=== PATIENT | male | born 1940 | race Caucasian/White ===

== ENCOUNTER 2017-11-03 00:07 | Emergency (ER) | payer MEDICARE, MEDICAID ==
[~2017-11-03] VITALS: Ht 167.6 cm; Wt 72.0 kg
[2017-11-03 00:09] VITALS: BP 163/118
[2017-11-03] MEDS ORDERED: albuterol 2.5 MG/3 ML nebule NEB ONE (01:15)
[2017-11-03] MEDS ORDERED: methylPREDNISolone sod succ 125mg/2ml vial IV ONE (01:15)
[2017-11-03 02:02] LABS: GLUCOSE 98 MG/DL (70-104); SODIUM 143 MMOL/L (135-145)
[2017-11-03 02:03] LABS: ALANINE AMINOTRANSFERASE 16 U/L (12-78); ALBUMIN 3.8 G/DL (3.4-5.0); ALBUMIN/GLOBULIN RATIO 0.9 (1.1-1.5); ALKALINE PHOSPHATASE 104 IU/L (46-116); ANION GAP 7 (8-16); ASPARTATE AMINO TRANSFERASE 15 U/L (10-37); BILIRUBIN,TOTAL 1.2 MG/DL (0.1-1.0); BLOOD UREA NITROGEN 12 MG/DL (7-18); BUN/CREATININE RATIO 10.3 (5.4-32.0); CHLORIDE 106 MMOL/L (99-107); CREATININE 1.17 MG/DL (0.60-1.10); TOTAL CARBON DIOXIDE 29.6 MMOL/L (24-32); eGFR 61 ML/MIN
[2017-11-03 02:08] LABS: BASOPHILS % (AUTO) 0.2 % (0-1); EOSINOPHILS # (AUTO) 0.3 X10'3 (0-0.9); EOSINOPHILS % (AUTO) 3.9 % (0-6); HEMATOCRIT 55.5 % (42.0-52.0); LYMPHOCYTES # (AUTO) 1.3 X10'3 (1.1-4.8); LYMPHOCYTES % (AUTO) 17.5 % (21-51); MEAN CORPUSCULAR HEMOGLOBIN 30.1 PG (27.0-31.0); MEAN CORPUSCULAR HGB CONC 32.5 % (33.0-36.5); MEAN CORPUSCULAR VOLUME 92.6 FL (78-98); MEAN PLATELET VOLUME 8.1 FL (7.4-10.4); MONOCYTES # (AUTO) 0.8 X10'3 (0-0.9); MONOCYTES % (AUTO) 10.8 % (2-12); NEUTROPHILS % (AUTO) 67.6 % (42-75); PLATELET COUNT 234 X10'3 (140-440); RED BLOOD COUNT 5.99 X10'6 (4.70-6.10); RED CELL DISTRIBUTION WIDTH 16.3 % (11.5-14.5); WHITE BLOOD COUNT 7.4 X10'3 (4.5-11.0)
[2017-11-03] MEDS ORDERED: ALBU8HFA PO (02:38)
[2017-11-03] MEDS ORDERED: PRED20TA PO (02:38)
== END 2017-11-03 03:58 | disposition home or self-care (01) ==
LOC: ER 00:07
DX: J44.1 Chronic obstructive pulmonary disease with (acute) exacerbation (principal); I11.9 Hypertensive heart disease without heart failure; I25.2 Old myocardial infarction; G89.29 Other chronic pain; E78.00 Pure hypercholesterolemia, unspecified; K21.9 Gastro-esophageal reflux disease without esophagitis; Z95.1 Presence of aortocoronary bypass graft; Z79.899 Other long term (current) drug therapy
CPT/HCPCS: 36415; 71045; 80053; 83880; 84484; 85025; 93005; 94640; 94760; 96374; 99285; J2930

== ENCOUNTER 2018-02-27 22:46 | Inpatient (IN) | payer MEDICARE, MEDICAID ==
[~2018-02-27] VITALS: Ht 167.6 cm; Wt 66.8 kg
[2018-02-28 00:31] LABS: ALANINE AMINOTRANSFERASE 14 U/L (12-78); ALBUMIN 3.3 G/DL (3.4-5.0); ANION GAP 11 (8-16); ASPARTATE AMINO TRANSFERASE 16 U/L (10-37); BILIRUBIN,TOTAL 1.1 MG/DL (0.1-1.0); BLOOD UREA NITROGEN 7 MG/DL (7-18); BUN/CREATININE RATIO 6.5 (5.4-32.0); CALCIUM 8.6 MG/DL (8.5-10.1); CHLORIDE 109 MMOL/L (99-107); CREATININE 1.07 MG/DL (0.60-1.10); GLUCOSE 100 MG/DL (70-104); POTASSIUM 4.1 MMOL/L (3.5-5.1); SODIUM 143 MMOL/L (135-145); TOTAL CARBON DIOXIDE 22.8 MMOL/L (24-32); TOTAL PROTEIN 6.6 G/DL (6.4-8.2); TROPONIN I < 0.04 NG/ML (0.0-0.05); eGFR 67 ML/MIN
[2018-02-28 00:42] LABS: HEMATOCRIT 55.2 % (42.0-52.0); MEAN CORPUSCULAR HEMOGLOBIN 31.7 PG (27.0-31.0); MEAN CORPUSCULAR HGB CONC 33.1 % (33.0-36.5); MEAN CORPUSCULAR VOLUME 95.9 FL (78-98); MEAN PLATELET VOLUME 8.1 FL (7.4-10.4); PLATELET COUNT 165 X10'3 (140-440); RED BLOOD COUNT 5.76 X10'6 (4.70-6.10); RED CELL DISTRIBUTION WIDTH 16.5 % (11.5-14.5); WHITE BLOOD COUNT 7.4 X10'3 (4.5-11.0)
[2018-02-28 00:45] LABS: HEMOGLOBIN 18.3 g/dl (14.0-17.9)
[2018-02-28 00:50] LABS: ALKALINE PHOSPHATASE 94 IU/L (46-116)
[2018-02-28 00:52] LABS: INR 1.1 INR; PARTIAL THROMBOPLASTIN TIME 26 SECONDS (22-32); PROTHROMBIN TIME 11.4 SECONDS (9.0-12.0)
[2018-02-28] MEDS ORDERED: furosemide 10 MG/1 ML 10ml inj IV ONE (01:05)
[2018-02-28 01:11] LABS: PLATELET ESTIMATE NORMAL; TOTAL CELLS COUNTED 100
[2018-02-28 01:12] LABS: ANISOCYTOSIS 1+
[2018-02-28] MEDS ORDERED: FUROSEMIDE 20 MG (01:57)
[2018-02-28] MEDS ORDERED: SIMVASTATIN 40 MG (01:57)
[2018-02-28] MEDS ORDERED: OMEPRAZOLE 20 MG (01:57)
[2018-02-28] MEDS ORDERED: HYDROCODONE (01:57)
[2018-02-28] MEDS ORDERED: METOPROLOL SUCCINATE 50 MG (01:57)
[2018-02-28] MEDS ORDERED: APAP (01:57)
[2018-02-28] MEDS ORDERED: ASPIRIN (01:57)
[2018-02-28 02:06] LABS: ABG BASE EXCESS -3.1 mmol/L (-2.0-3.0); ABG HCO3 20.4 mmol/L (22.0-26.0); ABG OXYGEN SATURATION 95.9 % (95-98); ABG PCO2 (T) 32.9 mmHg (35.0-48.0); ABG PH (T) 7.409 (7.350-7.450); ABG PO2 (T) 79.2 mmHg (83-108); ALLEN'S TEST Positive; FCOHb 0.1 % (0.5-1.5); FLOW 5 L/min; FMetHb 0.4 % (0.3-1.12); FO2Hb 95.4 % (94-100); PATIENT TEMPERATURE 36.8; RESPIRATORY RATE (OBSERVED) 18 b/min; TOTAL HEMOGLOBIN 19.2 G/dl (14.0-18.0)
[2018-02-28] MEDS ORDERED: nitroGLYCERIN 0.4mg SUBLingual tab SL PRN (02:45)
[2018-02-28] MEDS ORDERED: morphine 2 MG/ML inj. syringe IV PRN ×2 (02:45)
[2018-02-28] MEDS ORDERED: acetaminophen 325mg tablet PO PRN (02:45)
[2018-02-28] MEDS ORDERED: bisacodyl 10mg suppository rectal RC PRN (02:45)
[2018-02-28] MEDS ORDERED: aspirin 325mg tablet PO ONE (02:45)
[2018-02-28] MEDS ORDERED: metoprolol tartrate 12.5mg (1/2 tablet) PO ONE (03:00)
[2018-02-28] MEDS ORDERED: albuterol 2.5 MG/3 ML nebule NEB PRN (03:25)
[2018-02-28] MEDS: lisinopril 2.5mg tablet PO SCH ×2 (04:02→07:18)
[2018-02-28 04:05] VITALS: BP 175/119
[2018-02-28 07:00] VITALS: BP 149/92
[2018-02-28] MEDS: atorvastatin 20mg tablet PO SCH (07:17)
[2018-02-28] MEDS: docusate sod 100mg capsule PO SCH ×2 (07:17→20:00)
[2018-02-28] MEDS: furosemide 20MG tablet PO SCH (07:17)
[2018-02-28] MEDS: aspirin 325mg tablet PO SCH (07:17)
[2018-02-28] MEDS: azithromycin 250mg tablet PO SCH (07:17)
[2018-02-28] MEDS: metoprolol succinate 25mg (24-HOUR) SR. Tablet PO SCH (07:17)
[2018-02-28] MEDS: pantoprazole 40mg Tablet.DR PO SCH (07:18)
[2018-02-28] MEDS: enoxaparin 40mg/0.4ml syringe SUBCUT SCH (07:19)
[2018-02-28] MEDS: CefTRIAXone/D5W-Rocephin 1gm 50 ML IV SCH (07:19)
[2018-02-28] MEDS: diatr meglu/diatrizoate 30ml oral sol.-(3 dose) bottle PO SCH ×4 (10:22→16:27)
[2018-02-28 11:00] VITALS: BP 108/69
[2018-02-28] MEDS: HYDROcodone/acetaminophen 5mg/325mg tablet PO PRN (14:14)
[2018-02-28 15:00] VITALS: BP 124/86
[2018-02-28] MEDS: ipratropium/albuterol 3ml nebule NEB SCH ×3 (15:00→23:28)
[2018-02-28] MEDS ORDERED: iohexol 300mg/ml 100ml inj. ONE (16:28)
[2018-02-28 18:00] VITALS: BP 92/57
[2018-02-28] MEDS: lactobacillus rhamnosus 10,000 MMU CELLS/CAPSULE PO SCH (20:03)
[2018-02-28] MEDS ORDERED: diatr meglu/diatrizoate 30ml oral sol.-(3 dose) bottle PO SCH (21:00)
[2018-02-28 22:00] VITALS: BP 107/63
[2018-03-01 02:00] VITALS: BP 104/66
[2018-03-01] MEDS: ipratropium/albuterol 3ml nebule NEB SCH ×3 (03:00→11:42)
[2018-03-01 06:00] VITALS: BP 117/65
[2018-03-01] MEDS: HYDROcodone/acetaminophen 5mg/325mg tablet PO PRN (06:16)
[2018-03-01 06:24] LABS: BASOPHILS # (AUTO) 0.1 X10'3 (0-0.2); BASOPHILS % (AUTO) 0.7 % (0-1); EOSINOPHILS # (AUTO) 0.1 X10'3 (0-0.9); EOSINOPHILS % (AUTO) 1.6 % (0-6); HEMATOCRIT 50.9 % (42.0-52.0); HEMOGLOBIN 17.3 g/dl (14.0-17.9); LYMPHOCYTES % (AUTO) 15.1 % (21-51); MEAN CORPUSCULAR HEMOGLOBIN 32.2 PG (27.0-31.0); MEAN CORPUSCULAR HGB CONC 33.9 % (33.0-36.5); MEAN CORPUSCULAR VOLUME 94.9 FL (78-98); MEAN PLATELET VOLUME 8.2 FL (7.4-10.4); MONOCYTES # (AUTO) 0.7 X10'3 (0-0.9); MONOCYTES % (AUTO) 9.8 % (2-12); NEUTROPHILS # (AUTO) 4.9 X10'3 (1.8-7.7); NEUTROPHILS % (AUTO) 72.8 % (42-75); PLATELET COUNT 165 X10'3 (140-440); RED BLOOD COUNT 5.37 X10'6 (4.70-6.10); WHITE BLOOD COUNT 6.7 X10'3 (4.5-11.0)
[2018-03-01 06:46] LABS: ALANINE AMINOTRANSFERASE 8 U/L (12-78); ALBUMIN 2.7 G/DL (3.4-5.0); ALBUMIN/GLOBULIN RATIO 0.8 (1.1-1.5); ALKALINE PHOSPHATASE 80 IU/L (46-116); ANION GAP 11 (8-16); BILIRUBIN,TOTAL 1.2 MG/DL (0.1-1.0); BLOOD UREA NITROGEN 13 MG/DL (7-18); BUN/CREATININE RATIO 10.4 (5.4-32.0); CHLORIDE 108 MMOL/L (99-107); CREATININE 1.25 MG/DL (0.60-1.10); GLUCOSE 107 MG/DL (70-104); SODIUM 142 MMOL/L (135-145); TOTAL CARBON DIOXIDE 23.1 MMOL/L (24-32); TOTAL PROTEIN 5.9 G/DL (6.4-8.2); eGFR 56 ML/MIN
[2018-03-01 06:48] LABS: ASPARTATE AMINO TRANSFERASE 9 U/L (10-37); POTASSIUM 3.9 MMOL/L (3.5-5.1)
[2018-03-01] MEDS: pantoprazole 40mg Tablet.DR PO SCH (07:35)
[2018-03-01] MEDS: lisinopril 2.5mg tablet PO SCH (07:35)
[2018-03-01] MEDS: lactobacillus rhamnosus 10,000 MMU CELLS/CAPSULE PO SCH (07:35)
[2018-03-01] MEDS: aspirin 325mg tablet PO SCH (07:35)
[2018-03-01] MEDS: enoxaparin 40mg/0.4ml syringe SUBCUT SCH (07:35)
[2018-03-01] MEDS: atorvastatin 20mg tablet PO SCH (07:35)
[2018-03-01] MEDS: metoprolol succinate 25mg (24-HOUR) SR. Tablet PO SCH (07:35)
[2018-03-01] MEDS: furosemide 20MG tablet PO SCH (07:35)
[2018-03-01] MEDS: docusate sod 100mg capsule PO SCH (07:37)
[2018-03-01] MEDS: CefTRIAXone/D5W-Rocephin 1gm 50 ML IV SCH (07:42)
[2018-03-01] MEDS: azithromycin 250mg tablet PO SCH (08:00)
[2018-03-01 11:00] VITALS: BP 120/81
[2018-03-01] MEDS ORDERED: AMOX-422 PO (11:28)
== END 2018-03-01 14:40 | disposition home or self-care (01) | DRG 392 ==
LOC: ER 22:46 → ED HOLD 02-28 02:41 → PCU 3S 02-28 04:00
PROVIDERS: ADMIT Emergency Medicine; ATTEND Family Medicine
PROC: BW211ZZ Computerized Tomography (CT Scan) of Abdomen and Pelvis using Low Osmolar Contrast (ICD-10-PCS; principal; 2018-02-28)
DX: K21.9 Gastro-esophageal reflux disease without esophagitis (principal); J44.0 Chronic obstructive pulmonary disease with (acute) lower respiratory infection; G89.29 Other chronic pain; M54.9 Dorsalgia, unspecified; E78.00 Pure hypercholesterolemia, unspecified; E78.5 Hyperlipidemia, unspecified; I10 Essential (primary) hypertension; I25.10 Atherosclerotic heart disease of native coronary artery without angina pectoris; J20.9 Acute bronchitis, unspecified; K80.20 Calculus of gallbladder without cholecystitis without obstruction; Q85.00 Neurofibromatosis, unspecified; Z95.5 Presence of coronary angioplasty implant and graft; Z95.1 Presence of aortocoronary bypass graft; I25.2 Old myocardial infarction; Z99.81 Dependence on supplemental oxygen; Z79.899 Other long term (current) drug therapy; Z87.891 Personal history of nicotine dependence
CPT/HCPCS: 36415; 36600; 71045; 74177; 80053; 82803; 83880; 84484; 85018; 85025; 85610; 85730; 87070; 93005; 93306; 94640; 94760; 96374; 99285; J0696; J1650; J1940; J7030; Q9963; Q9967

== ENCOUNTER 2018-07-18 15:32 | Inpatient (IN) | payer MEDICARE, MEDICAID | END 2018-07-20 13:50 | disposition home or self-care (01) | LOC: ER 15:32 → ED HOLD 19:55 → PCU 3S 21:45 ==

== ENCOUNTER 2019-01-15 10:57 | Emergency (ER) | payer MEDICARE, MEDICAID ==
[~2019-01-15] VITALS: Ht 165.1 cm; Wt 68.2 kg
[~2019-01-15 10:57] MED LIST: ALBU0.63 NEB; ASPI81TA52 PO; BUDE10.22 INH; HYDR-3972 PO; METO1TAB25 PO; OMEP40CA13 PO; SIMV80TA2 PO
[2019-01-15 10:59] VITALS: BP 121/66
--- NOTE | 2019-01-15 11:54 | NUR ---
found a bedbug on the pt's clothing. informed the pt on how to take care of his clothes and material items at home. Addendum: 01/15/19 at 1154 by LISA MD aware and charge aware and enginering aware
== END 2019-01-15 11:41 | disposition home or self-care (01) ==
LOC: ER 10:58
DX: R06.02 Shortness of breath (principal); E78.00 Pure hypercholesterolemia, unspecified; I10 Essential (primary) hypertension; I25.2 Old myocardial infarction; J44.9 Chronic obstructive pulmonary disease, unspecified; K21.9 Gastro-esophageal reflux disease without esophagitis; G89.29 Other chronic pain; Z98.890 Other specified postprocedural states; Z79.82 Long term (current) use of aspirin; Z79.899 Other long term (current) drug therapy
CPT/HCPCS: 93005; 99284

== ENCOUNTER 2019-03-05 13:40 | Emergency (ER) | payer MEDICARE, MEDICAID ==
[~2019-03-05] VITALS: Ht 167.6 cm; Wt 72.7 kg
--- NOTE | 2019-03-05 15:00 | NUR ---
PT REQUESTS TO HAVE NO FEMALE STAFF IN THE ROOM.
[2019-03-05] MEDS ORDERED: furosemide 20MG tablet PO ONE (15:05)
[2019-03-05 15:55] LABS: CLARITY,URINE CLEAR (Clear); COLOR,URINE YELLOW (Yellow); GLUCOSE, URINE NEGATIVE (Neg); KETONES,URINE NEGATIVE (Neg); LEUKOCYTE ESTERASE ,URINE NEGATIVE (Neg); NITRITES, URINE NEGATIVE (Neg); OCCULT BLOOD,URINE NEGATIVE (Neg); PH,URINE 5.5 (4.8-8.0); PROTEIN,URINE 30 mg/dl (Neg); UA COLLECTION TYPE URINAL
[2019-03-05 16:03] LABS: BASOPHILS # (AUTO) 0.1 X10'3 (0-0.2); BASOPHILS % (AUTO) 1.1 % (0-1); EOSINOPHILS # (AUTO) 0.6 X10'3 (0-0.9); EOSINOPHILS % (AUTO) 8.5 % (0-6); HEMATOCRIT 48.5 % (42.0-52.0); HEMOGLOBIN 15.6 g/dl (14.0-17.9); LYMPHOCYTES # (AUTO) 1.1 X10'3 (1.1-4.8); LYMPHOCYTES % (AUTO) 14.7 % (21-51); MEAN CORPUSCULAR HEMOGLOBIN 30.7 PG (27.0-31.0); MEAN CORPUSCULAR HGB CONC 32.1 g/dL (33.0-36.5); MEAN CORPUSCULAR VOLUME 95.9 FL (78-98); MEAN PLATELET VOLUME 7.8 FL (7.4-10.4); MONOCYTES # (AUTO) 0.8 X10'3 (0-0.9); NEUTROPHILS # (AUTO) 4.6 X10'3 (1.8-7.7); NEUTROPHILS % (AUTO) 64.7 % (42-75); PLATELET COUNT 193 X10'3 (140-440); RED BLOOD COUNT 5.06 X10'6 (4.70-6.10); RED CELL DISTRIBUTION WIDTH 18.3 % (11.5-14.5); WHITE BLOOD COUNT 7.2 X10'3 (4.5-11.0)
[2019-03-05 16:03] LABS: SQUAMOUS EPITHELIAL CELL,UR FEW /LPF (FEW)
[2019-03-05 16:04] LABS: MUCUS STRANDS FEW /LPF (Neg)
[2019-03-05 16:05] LABS: BACTERIA,URINE FEW /HPF (Neg); RBC,URINE 0-2 /HPF (0-2); WBC,URINE 0-4 /HPF (0-4)
[2019-03-05 16:14] LABS: PARTIAL THROMBOPLASTIN TIME 27 SECONDS (22-32)
[2019-03-05 16:19] LABS: ALANINE AMINOTRANSFERASE 15 U/L (12-78); ALBUMIN 3.4 G/DL (3.4-5.0); ALBUMIN/GLOBULIN RATIO 0.8 (1.1-1.5); ALKALINE PHOSPHATASE 155 IU/L (46-116); ANION GAP 10 (8-16); ASPARTATE AMINO TRANSFERASE 18 U/L (10-37); BLOOD UREA NITROGEN 25 MG/DL (7-18); BUN/CREATININE RATIO 19.5 (5.4-32.0); CALCIUM 8.5 MG/DL (8.5-10.1); CHLORIDE 107 MMOL/L (99-107); CREATININE 1.28 MG/DL (0.60-1.10); GLUCOSE 100 MG/DL (70-104); POTASSIUM 5.2 MMOL/L (3.5-5.1); SODIUM 143 MMOL/L (135-145); TOTAL CARBON DIOXIDE 25.8 MMOL/L (24-32); TOTAL PROTEIN 7.5 G/DL (6.4-8.2); eGFR 54 ML/MIN
--- NOTE | 2019-03-05 17:03 | NUR ---
CALLED ERASMO THE PT'S FRIEND FOR HIM TO PICK HIM UP, ERASMO ON HIS WAY
[2019-03-05] MEDS ORDERED: FURO-150 PO (17:05)
[2019-03-05 17:23] VITALS: BP 138/99
== END 2019-03-05 17:27 | disposition home or self-care (01) ==
LOC: ER 13:41
DX: I11.0 Hypertensive heart disease with heart failure (principal); I50.9 Heart failure, unspecified; R60.0 Localized edema; E78.00 Pure hypercholesterolemia, unspecified; I25.2 Old myocardial infarction; J44.9 Chronic obstructive pulmonary disease, unspecified; K21.9 Gastro-esophageal reflux disease without esophagitis; G89.29 Other chronic pain; Z95.9 Presence of cardiac and vascular implant and graft, unspecified; Z79.82 Long term (current) use of aspirin; Z79.899 Other long term (current) drug therapy
CPT/HCPCS: 36415; 71045; 80053; 81001; 83880; 84484; 85025; 85610; 85730; 93005; 99284

== ENCOUNTER 2019-03-16 17:05 | Emergency (ER) | payer MEDICARE, MEDICAID ==
[~2019-03-16] VITALS: Ht 162.6 cm; Wt 63.0 kg
[~2019-03-16 17:05] MED LIST changes: +FURO-150 PO
[2019-03-16] MEDS ORDERED: methylPREDNISolone sod succ 125mg/2ml vial IV ONE (17:10)
[2019-03-16] MEDS ORDERED: normal saline 1000ml 1,000 ML IV ONE ×2 (17:15→19:25)
[2019-03-16] MEDS ORDERED: azithromycin/NS 500mg/250ml 250 ML IV ONE (17:15)
[2019-03-16] MEDS ORDERED: CefTRIAXone/D5W-Rocephin 1gm 50 ML IV ONE (17:15)
[2019-03-16 17:50] LABS: ABG BASE EXCESS -4.2 mmol/L (-2.0-3.0); ABG HCO3 18.7 mmol/L (22.0-26.0); ABG OXYGEN SATURATION 90.7 % (95-98); ABG PCO2 (T) 29.3 mmHg (35.0-45.0); ABG PH (T) 7.422 (7.350-7.450); ABG PO2 (T) 58.5 mmHg (83-108); ALLEN'S TEST Positive; FCOHb 1.1 % (0.5-1.5); FLOW 2 L/min; FMetHb 0.2 % (0.3-1.12); FO2Hb 89.5 % (94-100); TOTAL HEMOGLOBIN 16.2 G/dl (14.0-17.9)
[2019-03-16 18:30] LABS: BASOPHILS % (AUTO) 0.4 % (0-1); EOSINOPHILS # (AUTO) 0.5 X10'3 (0-0.9); EOSINOPHILS % (AUTO) 4.1 % (0-6); HEMATOCRIT 51.5 % (42.0-52.0); HEMOGLOBIN 16.3 g/dl (14.0-17.9); LYMPHOCYTES # (AUTO) 1.6 X10'3 (1.1-4.8); LYMPHOCYTES % (AUTO) 12.7 % (21-51); MEAN CORPUSCULAR HEMOGLOBIN 30.5 PG (27.0-31.0); MEAN CORPUSCULAR HGB CONC 31.5 g/dL (33.0-36.5); MEAN CORPUSCULAR VOLUME 96.7 FL (78-98); MEAN PLATELET VOLUME 7.8 FL (7.4-10.4); MONOCYTES # (AUTO) 0.8 X10'3 (0-0.9); MONOCYTES % (AUTO) 6.2 % (2-12); NEUTROPHILS # (AUTO) 9.6 X10'3 (1.8-7.7); NEUTROPHILS % (AUTO) 76.6 % (42-75); PLATELET COUNT 208 X10'3 (140-440); RED BLOOD COUNT 5.33 X10'6 (4.70-6.10); RED CELL DISTRIBUTION WIDTH 18.4 % (11.5-14.5); WHITE BLOOD COUNT 12.5 X10'3 (4.5-11.0)
--- NOTE | 2019-03-16 19:01 | NUR ---
notified dr montenegro regarding pt ltic acid 4.3 also inforem d that pt spo2 stays in 87and in bw go back to 90-91 max and now on 4l of o2 also informed that said thats his baseline in 86 and he is usually on 8l of o2 at home s per dr montenegro if its baseline lie 86-90 thats fine ,no new orders . for lactic acid dr montenegro said pt got 1 l of fluid and he is awaiting on lab result because he has chf and does not want to overload him.
--- NOTE | 2019-03-16 19:56 | NUR ---
, LEONARDO GUAMAN, AT BEDSIDE. SHE REPORTS TO ME THAT SHE DOES NOT WANT ANYONE TO BE GIVEN ANY INFORMATION ABOUT HIS CURRENT HEALTH STATUS. I INFORMED HER THAT THEY CAN LIST HIM CONFIDENTIAL, AND EXPLAINED THE PROCESS, BUT SHE REPORTS SHE JUST REQUESTS TO JSUT PASS THE WORD TO OTHERS THAT WILL CARE FOR HIM AND THAT SHE DOES NOT WANT TO GO TO THE LENGTH OF MAKING HIM CONFIDENTIAL. SATS 93% ON 2 LITERS. HR 103. LAB AT BEDSIDE TO COLLECT 2 HR LACTIC AND ADTL LABS.
--- NOTE | 2019-03-16 20:16 | NUR ---
used US to get blood for lab for blood cultures and other tubes. Pt very theatrical in r/t blood draw in that he cursed at me and was rude in his comments.
[2019-03-16 20:39] LABS: PARTIAL THROMBOPLASTIN TIME 25 SECONDS (22-32)
[2019-03-16 20:42] LABS: ALANINE AMINOTRANSFERASE 14 U/L (12-78); ALBUMIN 3.1 G/DL (3.4-5.0); ALBUMIN/GLOBULIN RATIO 0.8 (1.1-1.5); ALKALINE PHOSPHATASE 176 IU/L (46-116); ANION GAP 14 (8-16); ASPARTATE AMINO TRANSFERASE 31 U/L (10-37); BILIRUBIN,TOTAL 1.4 MG/DL (0.1-1.0); BLOOD UREA NITROGEN 15 MG/DL (7-18); BUN/CREATININE RATIO 15.8 (5.4-32.0); CALCIUM 7.5 MG/DL (8.5-10.1); CHLORIDE 111 MMOL/L (99-107); CREATININE 0.95 MG/DL (0.60-1.10); GLUCOSE 115 MG/DL (70-104); POTASSIUM 4.3 MMOL/L (3.5-5.1); SODIUM 143 MMOL/L (135-145); TOTAL CARBON DIOXIDE 17.8 MMOL/L (24-32); TOTAL PROTEIN 6.8 G/DL (6.4-8.2); eGFR 77 ML/MIN
[2019-03-16] MEDS ORDERED: vancomycin/NS 1 GM ADD-VANTAGE 250 ML X 1 DOSE IV ONE (20:45)
[2019-03-16] MEDS ORDERED: furosemide 10 MG/1 ML 10ml inj IV ONE (20:55)
--- NOTE | 2019-03-16 21:13 | NUR ---
PT USING URINAL RGT NOW AT BEDSIDE ,REFUSED TO TAKE HELP FROM LABORER [employer]PORT MAINTENANCEARNEL CORDOBA,[employer] WILL DO ROAD TEST ON PT AFTER PT IS DONE PER DR ROJAS.
[2019-03-16] MEDS ORDERED: PRED20TA PO (21:31)
[2019-03-16] MEDS ORDERED: ALBU8.5H8 INH (21:31)
[2019-03-16] MEDS ORDERED: AZIT-63 PO (21:31)
--- NOTE | 2019-03-16 21:31 | NUR ---
PT WALKED WITH DELTA CORDOBA FOR ROAD TEST ,PT WAS ABLE TO AMBULATE BY HIMSELF WITH HIS CANE ,PT DENIES ANY DISCOMFORT ,STATED THAT HE IS FEELING LOT BETTER , AND PT READY TO GO HOME ,PT CONNECTED BACK TO IV ABX.
[2019-03-16 22:39] VITALS: BP 125/74
== END 2019-03-16 22:43 | disposition home or self-care (01) ==
LOC: ER 17:05
DX: J44.1 Chronic obstructive pulmonary disease with (acute) exacerbation (principal); E78.00 Pure hypercholesterolemia, unspecified; I25.2 Old myocardial infarction; K21.9 Gastro-esophageal reflux disease without esophagitis; G89.29 Other chronic pain; I11.0 Hypertensive heart disease with heart failure; I50.9 Heart failure, unspecified; Z98.890 Other specified postprocedural states; Z79.899 Other long term (current) drug therapy; Z79.82 Long term (current) use of aspirin; Z99.81 Dependence on supplemental oxygen
CPT/HCPCS: 36415; 36600; 71045; 80053; 82803; 83605; 83880; 84484; 85018; 85025; 85610; 85730; 87040; 93005; 96365; 96366; 96367; 96375; 99284; J0456; J0696; J1940; J2930; J3370; J7030

== ENCOUNTER 2019-03-24 23:40 | Inpatient (IN) | payer MEDICARE, MEDICAID ==
[~2019-03-24] VITALS: Ht 170.2 cm; Wt 68.2 kg
[~2019-03-24 23:40] MED LIST changes: +ALBU8.5H8 INH; +AZIT-63 PO
[2019-03-24] MEDS ORDERED: CefTRIAXone 2gm/D5W 50ml 50 ML IV ONE (23:55)
[2019-03-24] MEDS ORDERED: normal saline 1000ML IV soln IVB ONE ×2 (23:55)
[2019-03-24] MEDS ORDERED: azithromycin/NS 500mg/250ml 250 ML IV ONE (23:55)
--- NOTE | 2019-03-24 23:56 | NUR ---
PT IS A DIFFICULT IV START - 3 RN'S ATTEMPTING AT THIS TIME ALONG WITH ULTRASOUND
--- NOTE | 2019-03-25 00:19 | NUR ---
PT WEARING URINE SOAKED UNDERWEAR AND SOCKS. WET CLOTHING REMOVED AND PT GIVEN WARM BLANKET
[2019-03-25 00:26] LABS: CLARITY,URINE CLEAR (Clear); COLOR,URINE YELLOW (Yellow); GLUCOSE, URINE NEGATIVE (Neg); KETONES,URINE 15 mg/dl (Neg); LEUKOCYTE ESTERASE ,URINE NEGATIVE (Neg); NITRITES, URINE NEGATIVE (Neg); OCCULT BLOOD,URINE SMALL (Neg); PH,URINE 5.5 (4.8-8.0); PROTEIN,URINE 30 mg/dl (Neg); UROBILINOGEN,URINE 0.2 E.U/dL (0.2-1.0)
[2019-03-25 00:33] LABS: UA COLLECTION TYPE STRAIGHT CATH
[2019-03-25 00:36] LABS: WBC,URINE 0-4 /HPF (0-4)
[2019-03-25 00:37] LABS: AMORPHOUS URATES 2+; BACTERIA,URINE FEW /HPF (Neg); RBC,URINE NONE SEEN /HPF (0-2); SQUAMOUS EPITHELIAL CELL,UR FEW /LPF (FEW)
[2019-03-25 01:06] LABS: ABG BASE EXCESS -9.1 mmol/L (-2.0-3.0); ABG HCO3 13.7 mmol/L (22.0-26.0); ABG OXYGEN SATURATION 94.2 % (95-98); ABG PCO2 (T) 23.9 mmHg (35.0-45.0); ABG PH (T) 7.375 (7.350-7.450); ABG PO2 (T) 74.5 mmHg (83-108); FCOHb 1.5 % (0.5-1.5); FLOW 4 L/min; FMetHb 0.2 % (0.3-1.12); FO2Hb 92.6 % (94-100); TOTAL HEMOGLOBIN 16.9 G/dl (14.0-17.9)
--- NOTE | 2019-03-25 01:23 | NUR ---
PT NOW HAS 2 IV'S AND NEW LABS HAVE BEEN SENT. IV BLOULS WELL ABX ARE INFUSING. PT HAD URINARY INCONTINENCE AND WAS CLEANED UP.
[2019-03-25 01:25] LABS: BASOPHILS % (AUTO) 0.2 % (0-1); EOSINOPHILS % (AUTO) 0.2 % (0-6); HEMATOCRIT 44.2 % (42.0-52.0); LYMPHOCYTES # (AUTO) 0.4 X10'3 (1.1-4.8); LYMPHOCYTES % (AUTO) 6.7 % (21-51); MEAN CORPUSCULAR HGB CONC 31.6 g/dL (33.0-36.5); MEAN CORPUSCULAR VOLUME 98.2 FL (78-98); MEAN PLATELET VOLUME 7.9 FL (7.4-10.4); MONOCYTES # (AUTO) 0.4 X10'3 (0-0.9); MONOCYTES % (AUTO) 6.6 % (2-12); NEUTROPHILS # (AUTO) 5.6 X10'3 (1.8-7.7); NEUTROPHILS % (AUTO) 86.3 % (42-75); PLATELET COUNT 155 X10'3 (140-440); RED BLOOD COUNT 4.49 X10'6 (4.70-6.10); RED CELL DISTRIBUTION WIDTH 19.4 % (11.5-14.5); WHITE BLOOD COUNT 6.5 X10'3 (4.5-11.0)
[2019-03-25 01:36] LABS: PARTIAL THROMBOPLASTIN TIME 32 SECONDS (22-32)
[2019-03-25 01:38] LABS: ALANINE AMINOTRANSFERASE 13 U/L (12-78); ALBUMIN 2.4 G/DL (3.4-5.0); ALBUMIN/GLOBULIN RATIO 0.8 (1.1-1.5); ALKALINE PHOSPHATASE 127 IU/L (46-116); ANION GAP 16 (8-16); ASPARTATE AMINO TRANSFERASE 15 U/L (10-37); BILIRUBIN,TOTAL 2.2 MG/DL (0.1-1.0); BLOOD UREA NITROGEN 24 MG/DL (7-18); CALCIUM 6.5 MG/DL (8.5-10.1); CHLORIDE 97 MMOL/L (99-107); CREATININE 1.33 MG/DL (0.60-1.10); GLUCOSE 81 MG/DL (70-104); POTASSIUM 3.2 MMOL/L (3.5-5.1); SODIUM 130 MMOL/L (135-145); TOTAL CARBON DIOXIDE 17.4 MMOL/L (24-32); TOTAL PROTEIN 5.4 G/DL (6.4-8.2); eGFR 52 ML/MIN
--- NOTE | 2019-03-25 01:43 | NUR ---
PT CONTINUES TO HAVE ALOC. HE STILL WON'T ANSWER ME WHEN ASKED WHERE HE IS OR WHAT HIS LAST NAME OR BORTHDAY IS. HE WILL HOWEVER SHOUT OBSCENITIES WHEN YOU ATTEMPT TO DRAWN BLOOD, INSERT A CATHETER OR OTHERWISE BOTHER HIM.
[2019-03-25 01:59] LABS: URINE AMPHETAMINE SCREEN NEGATIVE (Neg); URINE BARBITUATE SCREEN NEGATIVE (Neg); URINE BENZODIAZEPINES SCREEN NEGATIVE (Neg); URINE CANNABINOID SCREEN NEGATIVE (Neg); URINE COCAINE SCREEN NEGATIVE (Neg); URINE METHADONE SCREEN NEGATIVE (Neg); URINE OPIATE SCREEN POSITIVE (Neg); URINE PHENCYCLIDINE SCREEN NEGATIVE (Neg)
--- NOTE | 2019-03-25 01:59 | NUR ---
WILL NOTIFY MD REGARDING PTS TEMP OF 101.7
--- NOTE | 2019-03-25 02:08 | NUR ---
PT WILL SHOUT "GOD DAMMIT" BUT WHEN ASKED WHAT IS WRONG HE CAN'T TELL ME.
[2019-03-25] MEDS ORDERED: ketorolac trometh. 30mg/ml inj. IV ONE (02:15)
--- NOTE | 2019-03-25 02:19 | NUR ---
PT IS NOW ABLE TO TELL ME HIS NAME, BIRTHDAY AND THAT HE IS AT THE HOSPITAL. HE STILL CAN'T TELL ME THE MONTH OR THE YEAR. HE ALSO ISN'T SURE WHY HE IS AT THE HOSPITAL.
[2019-03-25 02:20] LABS: ANISOCYTOSIS 2+; ELLIPTOCYTES FEW; PLATELET ESTIMATE NORMAL
--- NOTE | 2019-03-25 03:04 | NUR ---
PT HAS POOR URINE OUTPUT. ONLY 10CC IN DRAINAGE BAG SINCE ZUNIGA CATH PLACEMENT AND PT HAS HAD APPROX 2000ML OF FLUID. WILL NOTIFY
[2019-03-25] MEDS ORDERED: normal saline 1000ml 1,000 ML IV ONE ×2 (03:10→03:50)
--- NOTE | 2019-03-25 03:12 | NUR ---
PT IS URINATING AROUND THE CATHETER. HIS LINENS ARE CHANGED AND CATH IS ADJUSTED AND AN ADDITIONAL 4MLS OF LUID IS ADDED TO THE BALLOON. AT BEDSIDE FOR RE-EVAL. PTS MENTATION CONTINUES TO IMPROVE. HE CAN NOW TELL US THAT HE TOOK "EXTRA NORCO" TO HELP HIS BACK PAIN.
[2019-03-25] MEDS ORDERED: magnesium hydroxide 30ml (MOM) UD suspension PO PRN (03:50)
[2019-03-25] MEDS ORDERED: magnesium 2GM in 50ml NS 50 ML IV PRN (03:50)
[2019-03-25] MEDS ORDERED: magnesium Cl slow-release 64mg tablet PO PRN (03:50)
[2019-03-25] MEDS ORDERED: potassium Cl 20 mEq SR tablet PO PRN ×2 (03:50)
[2019-03-25] MEDS ORDERED: ondansetron/PF 4mg/2ml inj IV PRN (03:50)
[2019-03-25] MEDS ORDERED: morphine 2 MG/ML inj. syringe IV PRN ×2 (03:50)
[2019-03-25] MEDS ORDERED: mag hydrox/Alum hydrox/simeth 30ml oral suspension PO PRN (03:50)
[2019-03-25] MEDS ORDERED: acetaminophen 325mg tablet PO PRN (03:50)
[2019-03-25] MEDS ORDERED: potassium CL 10mEq/100ml bag 100 ML IV PRN (03:50)
[2019-03-25] MEDS ORDERED: magnesium 4gm in 100ml NS 100 ML IV PRN (03:50)
--- NOTE | 2019-03-25 03:56 | NUR ---
RE-COLLECTED FLU SWAB IN HOPES OF GETTING A RESULT BEFORE WE HAVE TO WAIT THREE DAYS FOR AMANDO TO RUN THE SWAB. NEW ORDER FOR FLU RAPID PLACED.
[2019-03-25] MEDS: potassium CL 10mEq/100ml bag 100 ML IV PRN ×3 (04:11→06:13)
--- NOTE | 2019-03-25 04:11 | NUR ---
POTASSIUM REPLACEMENT STARTED FOR K OF 3.2 - 1ST K RIDER IS INFUSING.
--- NOTE | 2019-03-25 04:11 | NUR ---
HOSPITALIST AT BEDSIDE FOR ADMISSION. PT AWAKENS WITH CALLING OF NAME AND LIGHT SHOULDER TAPPING.
--- NOTE | 2019-03-25 05:24 | NUR ---
PT HAS BEEN SLEEPING COMFORTABLY. HE IS STILL AROUSABLE TO LIGHT SHAKING AND TURNING ON THE LIGHTS. HE IS AWAITING A ROOM UPSTAIRS.
--- NOTE | 2019-03-25 06:14 | NUR ---
3RD K RIDER INFUSING. PT HAS BEEN RESTING COMFORTABLY. HE AWAKENS WHEN HIS NAME IS CALLED AND WITH LIGHT SHOULDER TAP. DENIES NEEDS AT THIS TIME.
--- NOTE | 2019-03-25 06:34 | NUR ---
PT RESTING IN POC, STILL SLUGGISH TO WAKE BUT IS A&O X3 WHEN HE DOES. F/C NO LONGER LEAKING AT ENTRY . VSS. WAITING BED UPSTAIRS. 3RD K-RIDER INFUSING.
[2019-03-25] MEDS ORDERED: normal saline 1000ml 1,000 ML IV SCH (07:04)
--- NOTE | 2019-03-25 07:23 | NUR ---
AM LABS DRAWN BY THIS NURSE.
--- NOTE | 2019-03-25 07:24 | NUR ---
Spoke with Cristina FREY for patient and let her know that the order for the lumbar puncture needs to be placed under Diagnostic and not Angio. She states understanding. I have canceled the order for Angio.
--- NOTE | 2019-03-25 07:45 | NUR ---
SPOKE WITH PHARMACIST WHO STATED HE SPOKE WITH DR. BELTRAN ABOUT A NATIONAL IV SHORTAGE OF SOME OREDERED MEDS SO MD CHANGED TO PO AND WILL BE DOWN TO SEE PT SOON. ADVISED PT IS ALTERED AND WILL WAIT FOR DR. BELTRAN TO EVALUATE PT FIRST.
[2019-03-25 07:49] LABS: BASOPHILS % (AUTO) 0.4 % (0-1); EOSINOPHILS % (AUTO) 0.1 % (0-6); HEMATOCRIT 49.6 % (42.0-52.0); HEMOGLOBIN 15.8 g/dl (14.0-17.9); LYMPHOCYTES # (AUTO) 0.7 X10'3 (1.1-4.8); LYMPHOCYTES % (AUTO) 9.1 % (21-51); MEAN CORPUSCULAR HEMOGLOBIN 31.2 PG (27.0-31.0); MEAN CORPUSCULAR HGB CONC 31.9 g/dL (33.0-36.5); MEAN CORPUSCULAR VOLUME 97.7 FL (78-98); MEAN PLATELET VOLUME 8.1 FL (7.4-10.4); MONOCYTES # (AUTO) 0.9 X10'3 (0-0.9); MONOCYTES % (AUTO) 11.7 % (2-12); NEUTROPHILS # (AUTO) 6.2 X10'3 (1.8-7.7); NEUTROPHILS % (AUTO) 78.7 % (42-75); PLATELET COUNT 164 X10'3 (140-440); RED BLOOD COUNT 5.08 X10'6 (4.70-6.10); RED CELL DISTRIBUTION WIDTH 19.8 % (11.5-14.5); WHITE BLOOD COUNT 7.8 X10'3 (4.5-11.0)
--- NOTE | 2019-03-25 07:49 | NUR ---
DR. BELTRAN CALLED AND WAS TOLD PT STILL ALTERED AND CANNOT TAKE PO MEDS AT THIS TIME. HE VEERBALIZED UNDERSTANDING AND WILL WAIT FOR THE LP. STATED HE WILL CALL THE RADIOLOGIST FOR THE LP ORDER.
[2019-03-25 07:57] LABS: ALBUMIN 2.9 G/DL (3.4-5.0); ANION GAP 11 (8-16); BLOOD UREA NITROGEN 26 MG/DL (7-18); BUN/CREATININE RATIO 20.3 (5.4-32.0); CALCIUM 8.2 MG/DL (8.5-10.1); CHLORIDE 115 MMOL/L (99-107); CREATININE 1.28 MG/DL (0.60-1.10); GLUCOSE 98 MG/DL (70-104); POTASSIUM 5.3 MMOL/L (3.5-5.1); SODIUM 147 MMOL/L (135-145); TOTAL CARBON DIOXIDE 20.9 MMOL/L (24-32); eGFR 54 ML/MIN
[2019-03-25] MEDS ORDERED: acyclovir 200 MG capsule PO SCH (08:00)
[2019-03-25] MEDS ORDERED: LIDOcaine 1%/PF 5ML 10 MG/ML VIAL ONE (08:00)
[2019-03-25] MEDS ORDERED: GADOPENTETATE DIMEGLUMINE 2.5 MMOL/5 ML VIAL IV ONE (08:00)
[2019-03-25] MEDS ORDERED: acyclovir 1 GM inj IV SCH (08:00)
[2019-03-25] MEDS: enoxaparin 40mg/0.4ml syringe SQ SCH (08:00)
[2019-03-25] MEDS ORDERED: NORMAL SALINE IV SCH (08:00)
[2019-03-25] MEDS: K and/or MAG REPLACEMENT MC SCH (08:00)
[2019-03-25] MEDS ORDERED: ACYCLOVIR IV SCH (08:00)
[2019-03-25 08:14] LABS: ANISOCYTOSIS 2+; ELLIPTOCYTES FEW; PLATELET ESTIMATE NORMAL; POLYCHROMASIA FEW; SCHISTOCYTES FEW
--- NOTE | 2019-03-25 08:27 | NUR ---
CHEM PANEL BACK AND DRASTICALLY DIFFERENT, BLOOD WAS DRAWN OFF IV THAT HAD BEEN RUNNING K-RIDER AND FLUSHED WITH 10CC WASTE BUT THIS NURSE IS CONCERNED IT WAS A BAD SAMPLE. DR. BELTRAN NOTIFIED AND REPEAT CHEM PANEL ORDERED AND 4TH K-RIDER HELD UNTIL REPEAT LABS BACK.
[2019-03-25 09:20] LABS: BASOPHILS % (AUTO) 0.5 % (0-1); EOSINOPHILS % (AUTO) 0.2 % (0-6); HEMATOCRIT 51.9 % (42.0-52.0); HEMOGLOBIN 16.7 g/dl (14.0-17.9); LYMPHOCYTES # (AUTO) 0.8 X10'3 (1.1-4.8); MEAN CORPUSCULAR HEMOGLOBIN 31.1 PG (27.0-31.0); MEAN CORPUSCULAR HGB CONC 32.1 g/dL (33.0-36.5); MEAN CORPUSCULAR VOLUME 96.9 FL (78-98); MEAN PLATELET VOLUME 7.9 FL (7.4-10.4); MONOCYTES # (AUTO) 0.9 X10'3 (0-0.9); MONOCYTES % (AUTO) 13.4 % (2-12); NEUTROPHILS # (AUTO) 5.1 X10'3 (1.8-7.7); NEUTROPHILS % (AUTO) 73.9 % (42-75); PLATELET COUNT 167 X10'3 (140-440); RED BLOOD COUNT 5.35 X10'6 (4.70-6.10); RED CELL DISTRIBUTION WIDTH 19.5 % (11.5-14.5); WHITE BLOOD COUNT 6.9 X10'3 (4.5-11.0)
[2019-03-25 09:39] LABS: ALANINE AMINOTRANSFERASE 21 U/L (12-78); ALBUMIN/GLOBULIN RATIO 0.8 (1.1-1.5); ALKALINE PHOSPHATASE 188 IU/L (46-116); ANION GAP 10 (8-16); ASPARTATE AMINO TRANSFERASE 28 U/L (10-37); BILIRUBIN,TOTAL 0.9 MG/DL (0.1-1.0); BLOOD UREA NITROGEN 26 MG/DL (7-18); CHLORIDE 115 MMOL/L (99-107); GLUCOSE 96 MG/DL (70-104); POTASSIUM 5.4 MMOL/L (3.5-5.1); SODIUM 147 MMOL/L (135-145); TOTAL CARBON DIOXIDE 21.7 MMOL/L (24-32); eGFR 53 ML/MIN
--- NOTE | 2019-03-25 09:48 | NUR ---
REPEAT CHEM BACK, 4TH K-RIDER HELD PER PROTOCOL
[2019-03-25 09:54] LABS: PARTIAL THROMBOPLASTIN TIME 28 SECONDS (22-32)
[2019-03-25 09:58] LABS: ANISOCYTOSIS 2+; PLATELET ESTIMATE NORMAL
[2019-03-25 09:59] LABS: POLYCHROMASIA FEW; SCHISTOCYTES FEW
--- NOTE | 2019-03-25 12:30 | NUR ---
patient delivered to me from IR where he was getting a spinal tap, when he arrived he was cold and his respiratory rate was extremely high and could not get a proper O2 Sat reading. Addendum: 03/25/19 at 1554 by Neris Seymour RN Amended: Links added.
[2019-03-25 13:00] VITALS: BP 134/90
[2019-03-25 13:25] LABS: ABG BASE EXCESS -12.7 mmol/L (-2.0-3.0); ABG HCO3 10.8 mmol/L (22.0-26.0); ABG OXYGEN SATURATION 89.7 % (95-98); ABG PCO2 (T) 21.8 mmHg (35.0-45.0); ABG PH (T) 7.311 (7.350-7.450); ABG PO2 (T) 58.4 mmHg (83-108); ALLEN'S TEST Positive; FCOHb 0.9 % (0.5-1.5); FLOW 5 L/min; FMetHb 0.2 % (0.3-1.12); FO2Hb 88.7 % (94-100); TOTAL HEMOGLOBIN 17.9 G/dl (14.0-17.9)
[2019-03-25] MEDS ORDERED: METO50TA7 PO (14:28)
[2019-03-25 14:36] LABS: ALANINE AMINOTRANSFERASE 20 U/L (12-78); ALBUMIN 3.1 G/DL (3.4-5.0); ALBUMIN/GLOBULIN RATIO 0.8 (1.1-1.5); ANION GAP 14 (8-16); ASPARTATE AMINO TRANSFERASE 27 U/L (10-37); BILIRUBIN,TOTAL 1.3 MG/DL (0.1-1.0); BLOOD UREA NITROGEN 27 MG/DL (7-18); BUN/CREATININE RATIO 21.3 (5.4-32.0); CALCIUM 8.8 MG/DL (8.5-10.1); CHLORIDE 113 MMOL/L (99-107); CREATININE 1.27 MG/DL (0.60-1.10); GLUCOSE 96 MG/DL (70-104); POTASSIUM 5.4 MMOL/L (3.5-5.1); SODIUM 146 MMOL/L (135-145); TOTAL CARBON DIOXIDE 18.9 MMOL/L (24-32); TOTAL PROTEIN 7.1 G/DL (6.4-8.2); eGFR 55 ML/MIN
[2019-03-25] MEDS: normal saline 1000ml 1,000 ML IV SCH ×2 (14:36→17:30)
[2019-03-25 14:47] LABS: ALKALINE PHOSPHATASE 185 IU/L (46-116)
[2019-03-25] MEDS: atorvastatin 20mg tablet PO SCH (15:32)
[2019-03-25] MEDS: metoprolol succinate 25mg (24-HOUR) SR. Tablet PO SCH (15:32)
[2019-03-25] MEDS: aspirin 81mg tablet.DR PO SCH (15:32)
--- NOTE | 2019-03-25 17:32 | NUR ---
PAGER ID: [phone] MESSAGE: [phone] Fransico Diaz: Dr Beckett had an order for NPO and an order for a heart healthy diet both active. Which one is he supposed to be on? TK Christian Ext [phone]
[2019-03-25 18:00] VITALS: BP 136/84
--- NOTE | 2019-03-25 18:22 | NUR ---
Problems reprioritized. Patient report given, questions answered & plan of care reviewed with TK Gates.
[2019-03-25] MEDS: lactobacillus rhamnosus 10,000 MMU CELLS/CAPSULE PO SCH (20:02)
[2019-03-25] MEDS: CefTRIAXone 2gm/D5W 50ml 50 ML IV SCH (20:03)
[2019-03-25] MEDS: sodium chloride 0.45% 1,000 ML IV SCH (20:29)
[2019-03-25 22:00] VITALS: BP 113/78
[2019-03-26] VITALS (8 sets, daily range): BP systolic 110–159; BP diastolic 74–136
[2019-03-26] MEDS ORDERED: vancomycin/NS 1 GM ADD-VANTAGE 250 ML IV SCH (01:00)
--- NOTE | 2019-03-26 06:07 | NUR ---
[place] Medication Administration: For this medication-pass time frame, all medication were reviewed, dispensed, administered and documented per hospital policy by Quyen FREY. [place] documentation: I have reviewed interventions, assessments performed and documented by Quyen FREY.
--- NOTE | 2019-03-26 06:17 | NUR ---
Problems reprioritized. Patient report given, questions answered & plan of care reviewed with Gino FREY.
--- NOTE | 2019-03-26 06:17 | NUR ---
Patient in room PCU 3020. I have received report from TK Gates and had the opportunity to ask questions and assume patient care.
[2019-03-26 06:59] LABS: BASOPHILS % (AUTO) 0.4 % (0-1); EOSINOPHILS % (AUTO) 0.5 % (0-6); HEMATOCRIT 48.7 % (42.0-52.0); HEMOGLOBIN 15.6 g/dl (14.0-17.9); LYMPHOCYTES # (AUTO) 0.8 X10'3 (1.1-4.8); LYMPHOCYTES % (AUTO) 8.9 % (21-51); MEAN CORPUSCULAR HEMOGLOBIN 31.1 PG (27.0-31.0); MEAN CORPUSCULAR HGB CONC 31.9 g/dL (33.0-36.5); MEAN CORPUSCULAR VOLUME 97.2 FL (78-98); MEAN PLATELET VOLUME 7.9 FL (7.4-10.4); MONOCYTES % (AUTO) 11.4 % (2-12); NEUTROPHILS # (AUTO) 7.2 X10'3 (1.8-7.7); NEUTROPHILS % (AUTO) 78.8 % (42-75); PLATELET COUNT 165 X10'3 (140-440); RED BLOOD COUNT 5.01 X10'6 (4.70-6.10); RED CELL DISTRIBUTION WIDTH 19.7 % (11.5-14.5); WHITE BLOOD COUNT 9.2 X10'3 (4.5-11.0)
[2019-03-26] MEDS: K and/or MAG REPLACEMENT MC SCH (08:00)
[2019-03-26] MEDS: lactobacillus rhamnosus 10,000 MMU CELLS/CAPSULE PO SCH ×2 (08:02→20:27)
[2019-03-26] MEDS: metoprolol succinate 25mg (24-HOUR) SR. Tablet PO SCH (08:02)
[2019-03-26] MEDS: aspirin 81mg tablet.DR PO SCH (08:02)
[2019-03-26] MEDS: atorvastatin 20mg tablet PO SCH (08:02)
[2019-03-26] MEDS: pantoprazole 40mg Tablet.DR PO SCH (08:03)
[2019-03-26] MEDS: CefTRIAXone 2gm/D5W 50ml 50 ML IV SCH ×2 (08:05→20:26)
[2019-03-26] MEDS: enoxaparin 40mg/0.4ml syringe SQ SCH (08:29)
[2019-03-26 09:03] LABS: ANISOCYTOSIS 2+; ELLIPTOCYTES FEW; PLATELET ESTIMATE NORMAL; SCHISTOCYTES FEW
[2019-03-26] MEDS: sodium chloride 0.45% 1,000 ML IV SCH ×2 (09:20→12:03)
--- NOTE | 2019-03-26 10:30 | NUR ---
PAGER ID: [phone] MESSAGE: [phone] Fransico Diaz Do we still need the MRI? TK Christian Ext [phone]
--- NOTE | 2019-03-26 10:56 | NUR ---
Student Medication Administration: For this medication-pass time frame, all medication were reviewed, dispensed, administered and documented per hospital policy by Vladimir SAAVEDRA [facility].
[2019-03-26 11:39] LABS: ALANINE AMINOTRANSFERASE 16 U/L (12-78); ALBUMIN 2.5 G/DL (3.4-5.0); ALBUMIN/GLOBULIN RATIO 0.7 (1.1-1.5); ALKALINE PHOSPHATASE 142 IU/L (46-116); ANION GAP 9 (8-16); ASPARTATE AMINO TRANSFERASE 22 U/L (10-37); BILIRUBIN,TOTAL 0.5 MG/DL (0.1-1.0); BLOOD UREA NITROGEN 19 MG/DL (7-18); CALCIUM 8.7 MG/DL (8.5-10.1); CHLORIDE 112 MMOL/L (99-107); CREATININE 1.12 MG/DL (0.60-1.10); GLUCOSE 151 MG/DL (70-104); SODIUM 143 MMOL/L (135-145); TOTAL CARBON DIOXIDE 22.2 MMOL/L (24-32); TOTAL PROTEIN 6.2 G/DL (6.4-8.2); eGFR 63 ML/MIN
--- NOTE | 2019-03-26 13:56 | NUR ---
PAGER ID: [phone] MESSAGE: RM [phone] Fransico Diaz Only able to walk from bed to bathroom and back. Desated to 79%. TK Christian Ext [phone]
[2019-03-26] MEDS: ipratropium/albuterol 3ml nebule NEB SCH ×3 (14:46→21:00)
--- NOTE | 2019-03-26 18:07 | NUR ---
Problems reprioritized. Patient report given, questions answered & plan of care reviewed with TK Napier.
--- NOTE | 2019-03-26 18:30 | NUR ---
Patient in room PCU 3020. I have received report from TK Christian and had the opportunity to ask questions and assume patient care.
[2019-03-26] MEDS: furosemide 40mg/4ml inj IV SCH (20:25)
[2019-03-26] MEDS: methylPREDNISolone sod succ/PF 40mg inj. IV SCH (20:25)
[2019-03-26] MEDS: budesonide 0.5mg/2ml UD nebule IH SCH (20:28)
[2019-03-26] MEDS: HYDROcodone/acetaminophen 5mg/325mg tablet PO PRN (20:40)
[2019-03-27] MEDS: methylPREDNISolone sod succ/PF 40mg inj. IV SCH ×2 (01:45→07:11)
[2019-03-27] MEDS: HYDROcodone/acetaminophen 5mg/325mg tablet PO PRN (01:45)
[2019-03-27 02:00] VITALS: BP 140/78
[2019-03-27] MEDS: ipratropium/albuterol 3ml nebule NEB SCH ×2 (02:40→08:26)
[2019-03-27 06:00] VITALS: BP 109/54
--- NOTE | 2019-03-27 06:00 | NUR ---
Problems reprioritized. Patient report given, questions answered & plan of care reviewed with Gino FREY.
--- NOTE | 2019-03-27 06:02 | NUR ---
Problems reprioritized. Patient report given, questions answered & plan of care reviewed with TK Christian.
--- NOTE | 2019-03-27 06:07 | NUR ---
Patient in room PCU 3020. I have received report from TK Napier and had the opportunity to ask questions and assume patient care.
[2019-03-27 06:11] LABS: BASOPHILS % (AUTO) 0.1 % (0-1); EOSINOPHILS % (AUTO) 0 % (0-6); HEMATOCRIT 47.4 % (42.0-52.0); HEMOGLOBIN 15.4 g/dl (14.0-17.9); LYMPHOCYTES # (AUTO) 0.2 X10'3 (1.1-4.8); LYMPHOCYTES % (AUTO) 3.3 % (21-51); MEAN CORPUSCULAR HGB CONC 32.4 g/dL (33.0-36.5); MEAN CORPUSCULAR VOLUME 95.5 FL (78-98); MEAN PLATELET VOLUME 7.4 FL (7.4-10.4); MONOCYTES # (AUTO) 0.1 X10'3 (0-0.9); MONOCYTES % (AUTO) 0.8 % (2-12); NEUTROPHILS # (AUTO) 6.1 X10'3 (1.8-7.7); NEUTROPHILS % (AUTO) 95.8 % (42-75); PLATELET COUNT 161 X10'3 (140-440); RED BLOOD COUNT 4.96 X10'6 (4.70-6.10); RED CELL DISTRIBUTION WIDTH 19.5 % (11.5-14.5); WHITE BLOOD COUNT 6.3 X10'3 (4.5-11.0)
[2019-03-27] MEDS: pantoprazole 40mg Tablet.DR PO SCH (07:11)
[2019-03-27] MEDS: aspirin 81mg tablet.DR PO SCH (07:11)
[2019-03-27] MEDS: CefTRIAXone 2gm/D5W 50ml 50 ML IV SCH (07:12)
[2019-03-27] MEDS: atorvastatin 20mg tablet PO SCH (07:12)
[2019-03-27] MEDS: lactobacillus rhamnosus 10,000 MMU CELLS/CAPSULE PO SCH (07:12)
[2019-03-27] MEDS: metoprolol succinate 25mg (24-HOUR) SR. Tablet PO SCH (07:12)
[2019-03-27] MEDS: enoxaparin 40mg/0.4ml syringe SQ SCH (07:13)
[2019-03-27 07:16] LABS: ALANINE AMINOTRANSFERASE 13 U/L (12-78); ALBUMIN 2.5 G/DL (3.4-5.0); ALBUMIN/GLOBULIN RATIO 0.7 (1.1-1.5); ALKALINE PHOSPHATASE 122 IU/L (46-116); ANION GAP 11 (8-16); ASPARTATE AMINO TRANSFERASE 20 U/L (10-37); BILIRUBIN,TOTAL 0.5 MG/DL (0.1-1.0); BLOOD UREA NITROGEN 14 MG/DL (7-18); BUN/CREATININE RATIO 13.9 (5.4-32.0); CHLORIDE 109 MMOL/L (99-107); CREATININE 1.01 MG/DL (0.60-1.10); GLUCOSE 164 MG/DL (70-104); MAGNESIUM 1.6 MG/DL (1.5-2.4); SODIUM 141 MMOL/L (135-145); TOTAL CARBON DIOXIDE 20.6 MMOL/L (24-32); TOTAL PROTEIN 6.1 G/DL (6.4-8.2); eGFR 71 ML/MIN
[2019-03-27] MEDS: K and/or MAG REPLACEMENT MC SCH (08:00)
[2019-03-27] MEDS: furosemide 40mg/4ml inj IV SCH (08:00)
[2019-03-27 08:08] LABS: ANISOCYTOSIS 2+; ELLIPTOCYTES 1+; PLATELET ESTIMATE NORMAL; SCHISTOCYTES FEW
[2019-03-27] MEDS: budesonide 0.5mg/2ml UD nebule IH SCH (08:26)
[2019-03-27 11:00] VITALS: BP 142/74
--- NOTE | 2019-03-27 11:33 | NUR ---
PAGER ID: [phone] MESSAGE: [phone] Fransico Diaz: PT currently informed that Fransico Diaz needs more than 4L when ambulating as he dropped to 77% despite him being on 4L. TK Christian Ext [phone]
[2019-03-27] MEDS ORDERED: CEFD300C3 PO (11:51)
[2019-03-27] MEDS ORDERED: PRED20TA PO (11:54)
--- NOTE | 2019-03-27 11:55 | NUR ---
PAGER ID: [phone] MESSAGE: [phone] Fransico Diaz: PT informed when they were ambulating him he dropped to 77% on his O2 sats while already having him on 4L, so they had to kick up to 6L to finish ambulating. TK Christian Ext [phone]
--- NOTE | 2019-03-27 17:03 | NUR ---
Discharged at 1400. Friend picked up patient. Meds called into [facility] [place] on [address] Patient educated on pneumonia, medications and follow-up. Friend also educated on patient's meds. IV's taken out and tell off.
[2019-03-28] MEDS ORDERED: VANCOMYCIN LEVEL IV ONE (00:30)
[2019-03-28] MEDS ORDERED: CefTRIAXone 2gm/D5W 50ml 50 ML IV SCH (08:00)
== END 2019-03-27 14:08 | disposition home health service (06) | DRG 871 ==
LOC: ER 23:41 → EDBEDREQTM 03-25 04:00 → ED HOLD 03-25 04:16 → EDBEDREQ 03-25 09:32 → ORTHO 4S 03-25 12:10 → PCU 3S 03-25 16:30
PROVIDERS: ADMIT Hospitalist; ATTEND Family Medicine
PROC: 00JU3ZZ Inspection of Spinal Canal, Percutaneous Approach (ICD-10-PCS; principal; 2019-03-25)
DX: A41.9 Sepsis, unspecified organism (principal); G93.41 Metabolic encephalopathy; J96.21 Acute and chronic respiratory failure with hypoxia; E87.1 Hypo-osmolality and hyponatremia; J98.11 Atelectasis; L03.116 Cellulitis of left lower limb; I50.32 Chronic diastolic (congestive) heart failure; E78.00 Pure hypercholesterolemia, unspecified; G89.29 Other chronic pain; I25.10 Atherosclerotic heart disease of native coronary artery without angina pectoris; I11.0 Hypertensive heart disease with heart failure; E78.5 Hyperlipidemia, unspecified; I65.23 Occlusion and stenosis of bilateral carotid arteries; M48.061 Spinal stenosis, lumbar region without neurogenic claudication; J44.9 Chronic obstructive pulmonary disease, unspecified; K21.9 Gastro-esophageal reflux disease without esophagitis; M54.9 Dorsalgia, unspecified; E87.5 Hyperkalemia; N28.9 Disorder of kidney and ureter, unspecified; Z79.82 Long term (current) use of aspirin; Z79.899 Other long term (current) drug therapy; I25.2 Old myocardial infarction; Z99.81 Dependence on supplemental oxygen; Z95.1 Presence of aortocoronary bypass graft
CPT/HCPCS: 36415; 36600; 70450; 71045; 80048; 80053; 80305; 81001; 82803; 83605; 83735; 84145; 85018; 85025; 85610; 85730; 87040; 87081; 87502; 87503; 93306; 93880; 94640; 94760; 96365; 96367; 97110; 97112; 97116; 97161; 97530; 97535; 99285; G0378; J0133; J0456; J0696; J1650; J1885; J1940; J2920; J3370; J3480; J7030; J7050; J7626; Q9963